=== PATIENT | female | born 1965 | race Caucasian/White ===

== ENCOUNTER 2019-04-21 11:41 | Emergency (ER) | payer BC, OTHER ==
[~2019-04-21] VITALS: Ht 172.7 cm; Wt 81.8 kg
[2019-04-21] MEDS ORDERED: NS IV 1000 ML 1,000 ML IV SCH (11:53)
[2019-04-21] MEDS ORDERED: MECLIZINE 25 MG (ANTIVERT) TAB PO SCH (12:00)
--- NOTE | 2019-04-21 12:11 | ED General ---
General Chief Complaint: Dizziness/Syncope Stated Complaint: FEVER,DIZZINESS History of Present Illness Date Seen by Provider: Apr 21, 2019 Time Seen by Provider: 11:40 Initial Comments The patient is a 53-year-old female with a history of hypertension, chronic lymphocytic leukemia being treated with watchful management only at this time, and what family report is a remote history of what sounds like chronic vertigo and vestibular problems which caused her to be "dizzy and sick" all the time and which was treated with a specialized [facility] [place] [facility] about 10 [facility]. They believe intervention was on the left side but are not sure. They state she has had NO issues with dizziness of any kind for the last decade. The patient presents with acute onset of "dizziness" which she describes as both lightheadedness/presyncope and "room spinning" with onset about 45 minutes prior to arrival while she was driving in her car on the way to visit her mother here in [facility]. The patient does live a good distance away in [facility] and follows at an outside hospital for her medical care. She states symptoms had onset rather suddenly. Associated fatigue and copious diaphoresis and the patient is very sweaty upon initial evaluation in the emergency department. She is alert and oriented 4 and answers questions appropriately and denies feeling ill before the onset of symptoms acutely less than an hour ago. No associated fevers, nausea or vomiting, headache of any kind, focal/lateralizing weakness, numbness, tingling, neck stiffness / pain / meningismus, vision changes aside from mildly blurry vision bilaterally, shortness of breath, chest pain, abdominal pain, flank pain or back pain. Vital signs are appropriate and Accu-Chek is appropriate upon initial evaluation in the emergency department. Allergies and Home Medications Allergies Coded Allergies: No Known Drug Allergies (Unverified , 04/21/19) Patient Home Medication List Home Medication List Reviewed: Yes Review of Systems Review of Systems Constitutional: see HPI, diaphoresis All Other Systems Reviewed Negative Unless Noted: Yes (Negative excepted noted.) Past Xbqskuf-Xaqsga-Tzkivz Hx Past Med/Social Hx: Reviewed Nursing Past Med/Soc Hx Family Medical History Reviewed Nursing Family Hx Physical Exam Vital Signs Vital Signs - First Documented 04/21/19 12:10 Temp 36.3 Pulse 89 Resp 16 B/P (MAP) 136/77 (96) Pulse Ox 98 O2 Delivery Room Air Capillary Refill : Height, Weight, BMI Height: '" Weight: lbs. oz. kg; BMI Method: General Appearance: Mild Distress Comments This is a 53-year-old female appearing sweaty and in mild distress. Vital signs are appropriate and she is alert and oriented 4. Head is normocephalic and atraumatic. Neck is supple and nontender. Oropharynx is moist. Tympanic members are clear bilaterally. Pupils are symmetric and equally reactive to light. Lungs are clear to auscultation in all stations. There is normal S1 and S2 without rubs or gallops and capillary refill is appropriate, less than 2 seconds globally. Abdomen is soft, nontender and nondistended. Skin is warm and dry without cyanosis, clubbing or edema. Psychiatrically, the patient demonstrates appropriate mood and affect and is alert. Neurologically, cranial nerves II through XII are intact and there are no lateralizing deficits noted. Speech is normal. Language is normal. Coordination is normal. There is no dysmetria to finger to nose or heel to hyde bilaterally. Strength is 5 out of 5 in all joints of bilateral upper and lower extremities. Sensation is intact to light touch in bilateral upper and lower extremities. Ambulation testing is deferred. Patient is alert and oriented 4. Patient does not have obvious clearcut horizontal nystagmus in one direction or another but does have a less well defined n ystagmus with a subtle vertical and bidirectional horizontal component. Progress/Results/Core Measures Suspected Sepsis SIRS Temperature: Pulse: Respiratory Rate: Laboratory Tests 04/21/19 11:55: White Blood Count 33.4*H Blood Pressure / Mean: Laboratory Tests 04/21/19 11:55: Creatinine 0.96, INR Comment 1.0, Platelet Count 218, Total Bilirubin 0.3 Results/Orders Lab Results Laboratory Tests Test 04/21/19 11:55 Range/Units White Blood Count 33.4 *H 4.3-11.0 10^3/uL Red Blood Count 4.73 4.35-5.85 10^6/uL Hemoglobin 14.6 11.5-16.0 G/DL Hematocrit 43 35-52 % Mean Corpuscular Volume 92 80-99 FL Mean Corpuscular Hemoglobin 31 25-34 PG Mean Corpuscular Hemoglobin Concent 34 32-36 G/DL Red Cell Distribution Width 12.3 10.0-14.5 % Platelet Count 218 130-400 10^3/uL Mean Platelet Volume 9.9 7.4-10.4 FL Neutrophils (%) (Auto) 22 L 42-75 % Lymphocytes (%) (Auto) 72 H 12-44 % Monocytes (%) (Auto) 5 0-12 % Eosinophils (%) (Auto) 1 0-10 % Basophils (%) (Auto) 0 0-10 % Neutrophils # (Auto) 7.4 1.8-7.8 X 10^3 Lymphocytes # (Auto) 23.9 H 1.0-4.0 X 10^3 Monocytes # (Auto) 1.7 H 0.0-1.0 X 10^3 Eosinophils # (Auto) 0.4 H 0.0-0.3 10^3/uL Basophils # (Auto) 0.0 0.0-0.1 10^3/uL Neutrophils % (Manual) 20 % Lymphocytes % (Manual) 22 % Monocytes % (Manual) 4 % Eosinophils % (Manual) 1 % Band Neutrophils 1 % Atypical Lymphocytes % Reactive Lymphocytes 52 % Blood Morphology Comment NORMAL Prothrombin Time 13.5 12.2-14.7 SEC INR Comment 1.0 0.8-1.4 Activated Partial Thromboplast Time 23 L 24-35 SEC Sodium Level 139 135-145 MMOL/L Potassium Level 3.6 3.6-5.0 MMOL/L Chloride Level 103 98-107 MMOL/L Carbon Dioxide Level 20 L 21-32 MMOL/L Anion Gap 16 H 5-14 MMOL/L Blood Urea Nitrogen 18 7-18 MG/DL Creatinine 0.96 0.60-1.30 MG/DL Estimat Glomerular Filtration Rate 60 BUN/Creatinine Ratio 19 Glucose Level 184 H 70-105 MG/DL Calcium Level 8.9 8.5-10.1 MG/DL Corrected Calcium 8.7 8.5-10.1 MG/DL Total Bilirubin 0.3 0.1-1.0 MG/DL Aspartate Amino Transf (AST/SGOT) 18 5-34 U/L Alanine Aminotransferase (ALT/SGPT) 19 0-55 U/L Alkaline Phosphatase 96 40-136 U/L Troponin I < 0.30 <0.30 NG/ML Pro-B-Type Natriuretic Peptide 202.5 H <75.0 PG/ML Total Protein 7.2 6.4-8.2 GM/DL Albumin 4.3 3.2-4.5 GM/DL Serum Test, Qualitative NEGATIVE NEGATIVE My Orders Orders - SHABBIR TRONCOSO MD Cbc With Automated Diff (04/21/19 11:53) Comprehensive Metabolic Panel (04/21/19 11:53) Troponin I Fs (04/21/19 11:53) Ekg Tracing (04/21/19 11:53) Ct Head Wo (04/21/19 11:53) Ct Angio Head/Neck (04/21/19 11:53) Ct Angio Chest W (04/21/19 11:53) Hcg,Qualitative Serum (04/21/19 11:53) Probnp Fs (04/21/19 11:53) Protime With Inr (04/21/19 11:53) Partial Thromboplastin Time (04/21/19 11:53) Meclizine Tablet (Antivert Tablet) (04/21/19 12:00) Ed Iv/Invasive Line Start (04/21/19 11:53) Ns Iv 1000 Ml (Sodium Chloride 0.9%) (04/21/19 11:53) Manual Differential (04/21/19 11:55) Iohexol Injection (Omnipaque 350 Mg/Ml 1 (04/21/19 12:45) Received Contrast (Hold Metformin- Contr (04/21/19 12:45) Ns (Ivpb) (Sodium Chloride 0.9% Ivpb Bag (04/21/19 12:45) Aspirin Tablet (Aspirin Tablet) (04/21/19 13:15) Medications Given in ED Current Medications Medications Dose Ordered Sig/Lanette Route Start Time Stop Time Status Last Admin Dose Admin Iohexol 150 ml ONCE ONCE IV 04/21/19 12:45 04/21/19 12:47 DC 04/21/19 12:55 150 ML Sodium Chloride 100 ml ONCE ONCE IV 04/21/19 12:45 04/21/19 12:47 DC 04/21/19 12:55 80 ML Vital Signs/I&O 04/21/19 12:10 Temp 36.3 Pulse 89 Resp 16 B/P (MAP) 136/77 (96) Pulse Ox 98 O2 Delivery Room Air Capillary Refill : Progress Note : Time: 12:14 Progress Note Concerning presentation in this 53-year-old female with acute onset of a bidirectional/vertical/horizontal nystagmus in association with room spinning dizziness and significant diaphoresis. Patient placed on constant cardiac and respiratory monitoring. EKG obtained and is nonacute. Blood glucose obtained and is nonacute. Patient sent emergently for CT/CTAs as noted. Labs sent. Have ordered meclizine and a liter of fluids. Remote history of difficulty with peripheral vertigo does seem to make a peripheral etiology for symptoms more likely but symptoms do not seem classic for a peripheral vertigo and patient has not had any symptoms of vertigo since her surgery a decade ago. HINTS exam essentially nondiagnostic, patient has an NIHSS of 0. Some increased risk for ischemic stroke based on CLL diagnosis. We'll wait for results of imaging and labs and will contact [facility] for discussion with neurology and probable transfer. Update 1310: Patient is resting comfortably with stable vital signs upon reassessment. She reports continued severe vertigo but diaphoresis has resolved. Patient has a leukocytosis to 33,000 with a lymphocytic predominance, likely secondary to her CLL. Rest of lab work essentially unremarkable. Case is discussed in detail with Dr. Johnson of the [facility] transfer team and Dr. Gibson of [facility] stroke neurology. They are in agreement with no alteplase given negative NIH stroke scale score and findings of isolated severe vertigo, though with atypical features. Dr. Gibson recommends ASA which has been given. We will proceed with transfer to [facility] on the [place] for stat MRI, attention from neurology and possibly ENT depending upon results of further testing. Patient is stable for transfer. She is graciously excipient in transfer by Dr. Johnson. Diagnostic Imaging Comments CT ANGIO HEAD/NECK PROCEDURE: CT angiography of the head and CT angiography of the neck with and without contrast. TECHNIQUE: Contiguous noncontrast images were obtained from the skull base through the vertex. After intravenous contrast administration, helical CT angiography of the neck was performed. Source data was reformatted into 3D MIP projections. Delayed post contrast acquisition was also obtained. Auto Exposure Controls were utilized during the CT exam to meet ALARA standards for radiation dose reduction. INDICATION: Dizziness and diaphoresis. FINDINGS: There is a normal three-vessel branching pattern to the aortic arch. Both common carotid arteries appear to be widely patent. The carotid bifurcations are unremarkable. Both internal carotid arteries are widely patent. There appears to be normal opacification of the middle cerebral arteries bilaterally. Bilateral anterior cerebral arteries are widely patent. The posterior cerebral arteries are patent. The basilar is widely patent. Right vertebral artery is dominant. The vertebral arteries are patent. No definite stenosis or thromboembolism is detected. There are postsurgical changes of right temporal craniotomy. No abnormal enhancement on the delayed views are identified. IMPRESSION: Essentially unremarkable CT angiogram of the head and neck. No stenosis, aneurysm or thromboembolism is detected. Dictated on workstation # [id number] CT ANGIO CHEST W PROCEDURE: CT angiography of the chest with contrast. TECHNIQUE: Multiple contiguous axial images were obtained through the chest after uneventful bolus administration of intravenous contrast. 3D reconstructed CTA MIP acquisitions were also performed. Auto Exposure Controls were utilized during the CT exam to meet ALARA standards for radiation dose reduction. INDICATION: Dizziness and diaphoresis. COMPARISON: No prior studies are available for comparison. FINDINGS: Evaluation of the pulmonary arterial system is without thromboembolism. No filling defects within central, lobar or segmental pulmonary arteries are identified. The thoracic aorta is normal caliber. There is no dissection. No pericardial or pleural fluid is detected. No pulmonary infiltrates, nodules or masses are seen. Upper abdomen does demonstrate a stone within the gallbladder. IMPRESSION: 1. No evidence of pulmonary embolism or thoracic aortic dissection. 2. Cholelithiasis. PROCEDURE: CT head without contrast. TECHNIQUE: Multiple contiguous axial images were obtained through the brain without the use of intravenous contrast. Auto Exposure Controls were utilized during the CT exam to meet ALARA standards for radiation dose reduction. INDICATION: Dizziness. COMPARISON: No prior studies are available for comparison. FINDINGS: The ventricles and sulci are within normal limits. No sulcal effacement or midline shift is detected. No acute intra-axial or extra-axial hemorrhage is detected. Cisterns are patent. Visualized paranasal sinuses are clear. IMPRESSION: No acute intracranial process is detected. Critical Care Note Critical Care Total Time (minutes) 60 Departure Impression Primary Impression: Vertigo Additional Impressions: Pre-syncope Diaphoresis Disposition: 02 XFER SHT-TRM HOSP Condition: Stable Transfer Transfer Reason: Exceeds level of care Time Spoke to Accepting Phy: 13:10 Transfer Progress Notes Case requires input from neurology and thus exceeds the capabilities of [facility]. Accepted by Dr. Johnson. Transfer Facility: [facility] Method of Transfer: EMS SHABBIR TRONCOSO MD Apr 21, 2019 12:11 POS
[2019-04-21 12:12] LABS: BASOPHILS % (AUTO) 0 % (0-10); EOSINOPHILS # (AUTO) 0.4 10^3/uL (0.0-0.3); EOSINOPHILS % (AUTO) 1 % (0-10); HEMATOCRIT 43 % (35-52); HEMOGLOBIN 14.6 G/DL (11.5-16.0); LYMPHOCYTES # (AUTO) 23.9 X 10^3 (1.0-4.0); LYMPHOCYTES % (AUTO) 72 % (12-44); MEAN CORPUSCULAR HEMOGLOBIN 31 PG (25-34); MEAN CORPUSCULAR HGB CONC 34 G/DL (32-36); MEAN CORPUSCULAR VOLUME 92 FL (80-99); MEAN PLATELET VOLUME 9.9 FL (7.4-10.4); MONOCYTES # (AUTO) 1.7 X 10^3 (0.0-1.0); MONOCYTES % (AUTO) 5 % (0-12); NEUTROPHILS % (AUTO) 22 % (42-75); PLATELET COUNT 218 10^3/uL (130-400); RED CELL DISTRIBUTION WIDTH 12.3 % (10.0-14.5)
[2019-04-21 12:13] LABS: NEUTROPHILS # (AUTO) 7.4 X 10^3 (1.8-7.8)
--- NOTE | 2019-04-21 12:14 | Diagnostic Imaging Report ---
PROCEDURE: CT head without contrast. TECHNIQUE: Multiple contiguous axial images were obtained through the brain without the use of intravenous contrast. Auto Exposure Controls were utilized during the CT exam to meet ALARA standards for radiation dose reduction. INDICATION: Dizziness. COMPARISON: No prior studies are available for comparison. FINDINGS: The ventricles and sulci are within normal limits. No sulcal effacement or midline shift is detected. No acute intra-axial or extra-axial hemorrhage is detected. Cisterns are patent. Visualized paranasal sinuses are clear. IMPRESSION: No acute intracranial process is detected. Dictated by: Dictated on workstation # [id number]
[2019-04-21 12:31] LABS: WHITE BLOOD COUNT 33.4 10^3/uL (4.3-11.0)
[2019-04-21 12:33] LABS: BAND NEUTROPHILS 1 %; EOSINOPHILS % (MANUAL) 1 %; LYMPHOCYTES % (MANUAL) 22 %; MONOCYTES % (MANUAL) 4 %; NEUTROPHILS % (MANUAL) 20 %
[2019-04-21 12:36] LABS: RBC MORPH NORMAL; REACTIVE LYMPHOCYTES 52 %
[2019-04-21 12:39] LABS: ALANINE AMINOTRANSFERASE 19 U/L (0-55); ALKALINE PHOSPHATASE 96 U/L (40-136); BILIRUBIN,TOTAL 0.3 MG/DL (0.1-1.0); BUN/CREATININE RATIO 19; CALCIUM 8.9 MG/DL (8.5-10.1); CARBON DIOXIDE 20 MMOL/L (21-32); CHLORIDE 103 MMOL/L (98-107); CREATININE SERUM 0.96 MG/DL (0.60-1.30); GFR ESTIMATED 60; GLUCOSE 184 MG/DL (70-105); POTASSIUM 3.6 MMOL/L (3.6-5.0); SODIUM 139 MMOL/L (135-145)
[2019-04-21 12:40] LABS: ALBUMIN 4.3 GM/DL (3.2-4.5); TOTAL PROTEIN 7.2 GM/DL (6.4-8.2)
--- NOTE | 2019-04-21 12:42 | Diagnostic Imaging Report ---
PROCEDURE: CT angiography of the chest with contrast. TECHNIQUE: Multiple contiguous axial images were obtained through the chest after uneventful bolus administration of intravenous contrast. 3D reconstructed CTA MIP acquisitions were also performed. Auto Exposure Controls were utilized during the CT exam to meet ALARA standards for radiation dose reduction. INDICATION: Dizziness and diaphoresis. COMPARISON: No prior studies are available for comparison. FINDINGS: Evaluation of the pulmonary arterial system is without thromboembolism. No filling defects within central, lobar or segmental pulmonary arteries are identified. The thoracic aorta is normal caliber. There is no dissection. No pericardial or pleural fluid is detected. No pulmonary infiltrates, nodules or masses are seen. Upper abdomen does demonstrate a stone within the gallbladder. IMPRESSION: 1. No evidence of pulmonary embolism or thoracic aortic dissection. 2. Cholelithiasis. Dictated by: Dictated on workstation # [id number]
[2019-04-21] MEDS ORDERED: IOHEXOL 350 MG/ML 150 ML (OMNIPAQUE 350) VIAL IV ONE (12:45)
[2019-04-21] MEDS ORDERED: HOLD METFORMIN - RECEIVED CONTRAST 20 ML VIAL IV SCH (12:45)
[2019-04-21] MEDS ORDERED: NS 100 ML (IVPB) BAG IV ONE (12:45)
[2019-04-21 12:46] LABS: PROTHROMBIN TIME PATIENT 13.5 SEC (12.2-14.7)
--- NOTE | 2019-04-21 13:01 | Diagnostic Imaging Report ---
PROCEDURE: CT angiography of the head and CT angiography of the neck with and without contrast. TECHNIQUE: Contiguous noncontrast images were obtained from the skull base through the vertex. After intravenous contrast administration, helical CT angiography of the neck was performed. Source data was reformatted into 3D MIP projections. Delayed post contrast acquisition was also obtained. Auto Exposure Controls were utilized during the CT exam to meet ALARA standards for radiation dose reduction. INDICATION: Dizziness and diaphoresis. FINDINGS: There is a normal three-vessel branching pattern to the aortic arch. Both common carotid arteries appear to be widely patent. The carotid bifurcations are unremarkable. Both internal carotid arteries are widely patent. There appears to be normal opacification of the middle cerebral arteries bilaterally. Bilateral anterior cerebral arteries are widely patent. The posterior cerebral arteries are patent. The basilar is widely patent. Right vertebral artery is dominant. The vertebral arteries are patent. No definite stenosis or thromboembolism is detected. There are postsurgical changes of right temporal craniotomy. No abnormal enhancement on the delayed views are identified. IMPRESSION: Essentially unremarkable CT angiogram of the head and neck. No stenosis, aneurysm or thromboembolism is detected. Dictated by: Dictated on workstation # [id number]
[2019-04-21] MEDS ORDERED: ASPIRIN 325 MG (5 GR) TABLET PO ONE (13:15)
[2019-04-21 14:00] VITALS: BP 154/89
== END 2019-04-21 14:15 | disposition short-term general hospital (02) ==
LOC: ER FS 11:42
DX: R42 Dizziness and giddiness (principal); R55 Syncope and collapse; R61 Generalized hyperhidrosis; I10 Essential (primary) hypertension; Z85.6 Personal history of leukemia
CPT/HCPCS: 36415; 70450; 70496; 70498; 71275; 80053; 83880; 84484; 84703; 85007; 85027; 85610; 85730; 93005